=== PATIENT | male | born 1940 | race Caucasian/White ===

== ENCOUNTER 2021-07-12 13:04 | Emergency (ER) | payer OTHER, BC ==
[2021-07-12 13:43] VITALS: BMI 28.4
[2021-07-12] MEDS ORDERED: BEBTELOVIMAB (EUA) 175 MG/2 ML VIAL IVPUSH ONE (14:10)
[2021-07-12 16:20] VITALS: BP 103/49; PULSE 77; TEMP 99.5
== END 2021-07-12 16:22 | disposition home or self-care (01) ==
LOC: JCOVINFU 13:04 → JER 13:04 → JCOVINFU 16:22
DX: U07.1 COVID-19 (principal)
CPT/HCPCS: 99284-25; M0222; Q0222

== ENCOUNTER 2022-02-27 12:54 | Emergency (ER) | payer OTHER, BC ==
[2022-02-27 13:06] VITALS: BP 130/79; PULSE 82; RESP 16; TEMP 97.6; BMI 28.2
== END 2022-02-27 14:46 | disposition home or self-care (01) ==
LOC: FER 12:54
DX: S05.12XA Contusion of eyeball and orbital tissues, left eye, initial encounter (principal); W19.XXXA Unspecified fall, initial encounter
CPT/HCPCS: 70450-TC; 70486-TC; 99284-25